=== PATIENT | female | born 1965 | race Caucasian/White ===

== ENCOUNTER 2017-10-08 21:33 | Emergency (ER) | payer SELFPAY, OTHER | END 2017-10-08 21:55 | disposition left against medical advice (07) | LOC: E/R 21:33 | DX: Z53.21 Procedure and treatment not carried out due to patient leaving prior to being seen by health care provider (principal) ==

== ENCOUNTER 2018-04-18 17:39 | Emergency (ER) | payer OTHER ==
[2018-04-18 18:26] LABS: ADD MAN DIFF? NO
[2018-04-18 18:27] LABS: WHITE BLOOD COUNT 10.7 10^3/ul (4.8-10.8)
[2018-04-18 18:27] LABS: BASOPHIL # 0.1 10^3/ul (0.0-0.1); BASOPHILS % 1.1 % (0.0-2.0); EOSINOPHILS # 0.2 10^3/ul (0.0-0.5); EOSINOPHILS % 1.4 % (0.0-7.0); HEMATOCRIT 37.1 % (37.0-47.0); HEMOGLOBIN 11.9 g/dl (12.0-16.0); LYMPHOCYTES # 3.7 10^3/ul (0.8-2.9); LYMPHOCYTES % 34.1 % (15.0-51.0); MEAN CORPUSCULAR HEMOGLOBIN 25.9 pg (29.0-33.0); MEAN CORPUSCULAR HGB CONC 32.1 g/dl (32.0-37.0); MEAN CORPUSCULAR VOLUME 80.7 fl (82.0-101.0); MEAN PLATELET VOLUME 10.8 fl (7.4-10.4); MONOCYTE # 0.5 10^3/ul (0.3-0.9); MONOCYTES % 4.3 % (0.0-11.0); NEUTROPHIL # 6.3 10^3/ul (1.6-7.5); NEUTROPHILS % 58.8 % (39.0-77.0); PLATELET COUNT 314 10^3/UL (140-415); RED CELL DISTRIBUTION WIDTH 14.5 % (11.5-14.5)
[2018-04-18 18:45] LABS: ANION GAP 14 (8-16); BLOOD UREA NITROGEN 13 mg/dl (7-20); CALCIUM 9.4 mg/dl (8.4-10.2); CARBON DIOXIDE 26 mmol/L (21-31); CHLORIDE 106 mmol/L (97-110); CREATININE 0.59 mg/dl (0.44-1.00); GLUCOSE 112 mg/dl (70-220); POTASSIUM 4.1 mmol/L (3.5-5.1); SODIUM 142 mmol/L (135-144)
[2018-04-18] MEDS: morphine 4 MG/ML VIAL IV (18:45)
[2018-04-18] MEDS: ONDANSETRON 4 MG INJ IV (18:45)
[2018-04-18] MEDS: SOD CHLORIDE 0.9% 500 ML IV (18:46)
[2018-04-18 18:57] LABS: TROPONIN-I < 0.012 ng/ml (0.000-0.120)
== END 2018-04-18 20:10 | disposition home or self-care (01) ==
LOC: E/R 17:39
DX: I16.0 Hypertensive urgency (principal); R40.2142 Coma scale, eyes open, spontaneous, at arrival to emergency department; R40.2252 Coma scale, best verbal response, oriented, at arrival to emergency department; R40.2362 Coma scale, best motor response, obeys commands, at arrival to emergency department; I10 Essential (primary) hypertension; Z79.82 Long term (current) use of aspirin
CPT/HCPCS: 36415; 71045; 80048; 84484; 85025; 93005; 96374; 96375; 99285-25

== ENCOUNTER 2018-05-31 15:51 | Emergency (ER) | payer OTHER ==
[2018-05-31] MEDS: ACETAMINOPHEN 325 MG TAB PO (16:19)
[2018-05-31] MEDS: ONDANSETRON (ODT) 4 MG TAB ODT (16:20)
== END 2018-05-31 17:00 | disposition home or self-care (01) ==
LOC: FTE 15:51
DX: B34.9 Viral infection, unspecified (principal); I10 Essential (primary) hypertension; Z79.82 Long term (current) use of aspirin
CPT/HCPCS: 71045; 99283-25